=== PATIENT | male | born 1985 | race Caucasian/White ===

== ENCOUNTER 2016-07-20 15:32 | Emergency (ER) | payer SELFPAY ==
[2016-07-20 16:42] VITALS: BP 153/82
--- NOTE | 2016-07-20 17:41 | RAD ---
INDICATION: Left middle finger trauma. TECHNIQUE: 3 views of the left middle finger were obtained. FINDINGS: There is soft tissue swelling and a soft tissue defect present adjacent to the distal phalanx. There is a small chip fracture of the tuft of the distal phalanx which is distracted. Joint spaces appear maintained. IMPRESSION: SOFT TISSUE INJURY AND CHIP FRACTURE OF THE TUFT OF THE DISTAL PHALANX.
[2016-07-20] MEDS ORDERED: ceFAZolin 1 GM in Dextrose (*) 1 GM/50 ML BAG IVPB ONE (18:29)
--- NOTE | 2016-07-20 19:24 | ED ---
Laceration/Wound HPI - HPI Summary HPI Summary: 30M presents with left middle finger laceration today. The injury occurred while he was taking a tire off at work and got it caught in the machine. He has full ROM of his fingers. He denies any numbness or tingling. He is right handed. He states he believes his tetanus is up to date but will follow up with primary if it is not. - History of Current Complaint Stated Complaint: FINGER LAC Time Seen by Provider: 07/20/16 18:16 Pain Intensity: 10 - Allergy/Home Medications Allergies/Adverse Reactions: Allergies Allergy/AdvReac Type Severity Reaction Status Date / Time Sulfa Antibiotics Allergy Unknown Verified 07/20/16 17:19 Reaction Details PMH/Surg Hx/FS Hx/Imm Hx Endocrine/Hematology History: Denies: Hx Anticoagulant Therapy Cardiovascular History: Denies: Hx Hypertension Infectious Disease History: No Infectious Disease History: Denies: Traveled Outside the [place] in Last 30 Days - Family History Known Family History: Positive: Hypertension - Social History Alcohol Use: Occasionally Substance Use Type: Reports: Marijuana Smoking Status (MU): Current Every Day Smoker Review of Systems Negative: Fever Negative: Chest Pain Negative: Shortness Of Breath Positive: Myalgia - left middle finger pain Positive: Other - laceration left middle finger All Other Systems Reviewed And Are Negative: Yes Physical Exam Triage Information Reviewed: Yes Vital Signs On Initial Exam: Initial Vitals Temp Pulse Resp BP Pulse Ox 98.1 F 113 20 153/92 97 07/20/16 15:35 07/20/16 15:35 07/20/16 15:35 07/20/16 15:35 07/20/16 15:35 Vital Signs Reviewed: Yes Appearance: Positive: Well-Appearing Skin: Positive: Warm, Dry, Other - 4cm laceration partially around tip of left middle finger that is near tip of intact nail Head/Face: Positive: Normal Head/Face Inspection Eyes: Positive: Normal, Conjunctiva Clear Respiratory/Lung Sounds: Positive: Clear to Auscultation, Breath Sounds Present Cardiovascular: Positive: Normal, RRR Musculoskeletal: Positive: Strength/ROM Intact - of left middle finger, Other - good pulses Procedures - Splinting Location: left middle finger Pre-Made Type: metal Splint: finger splint - Laceration/Wound Repair 1 Location: Other - left middle finger Description: Irregular Anesthesia: Digital, 1.0% Length, Depth and Shape: 4cm partially around finger Betadine Prep?: Yes Irrigated w/ Saline (ccs): 1,000 Laceration/Wound Explored: clean Closure: Single Layer Suture Type: Prolene - 4-0 Number of Sutures: 5 Diagnostics - Vital Signs Vital Signs Temp Pulse Resp BP Pulse Ox 07/20/16 16:28 98.1 F 113 20 153/82 97 07/20/16 15:35 98.1 F 113 20 153/92 97 - Laboratory Lab Statement: Any lab studies that have been ordered have been reviewed, and results considered in the medical decision making process. - Radiology finger Xray Interpretation: Positive (See Comments) - IMPRESSION: SOFT TISSUE INJURY AND CHIP FRACTURE OF THE TUFT OF THE DISTAL PHALANX. Radiology Interpretation Completed By: Radiologist Laceration Repair Course/Dx - Course Course Of Treatment: 30M presents with laceration to left middle finger from machine at work. on exam appears like partially amputation of tip of finger with intact nail. xray shows chip fracture of tuft so will treat as open fracture and gave ancef and will continue antibiotics at home. cleaned area well and placed 5 sutures. placed in finger splint and told to follow up with ortho or primary. patient understands and agrees with plan - Differential Dx Differental Diagnoses: Abrasion, Avulsion, Fracture, Laceration - Clinical Impression Provider Diagnoses: Laceration of left middle finger, Open fracture of tuft of distal phalanx of finger Discharge - Discharge Plan Condition: Good Disposition: HOME Prescriptions: Cephalexin CAP* [Keflex CAP*] 500 mg PO BID #20 cap oxyCODONE/Acetamin 5/325 MG* [Percocet 5/325 TAB*] 1 tab PO Q6H PRN #8 tab MDD 4 PRN Reason: Pain Patient Education Materials: Finger Fracture (ED), Care For Your Stitches (ED) Forms: *Work Release Referrals: Anthony Sterling MD [Medical Doctor] - Non Staff,Doctor [Primary Care Provider] - Additional Instructions: Keep area in splint, change dressing once a day Keep area clean and dry for 48 hours Take Tylenol or ibuprofen for pain every 6 hours, use narcotic for break through pain Follow up with ortho or primary for finger fracture Return to ED or primary for suture removal in 10-14 days Return to ED if develop signs of infection such as fever, spreading redness, or pus formation Images - Images Hands: 1 - 4c
== END 2016-07-20 19:26 | disposition home or self-care (01) ==
LOC: ED 15:32
DX: S61.213A Laceration without foreign body of left middle finger without damage to nail, initial encounter (principal); S62.633B Displaced fracture of distal phalanx of left middle finger, initial encounter for open fracture; W31.9XXA Contact with unspecified machinery, initial encounter; Y93.9 Activity, unspecified; Y92.9 Unspecified place or not applicable
CPT/HCPCS: 73140; 99282; J0690